=== PATIENT | male | born 1950 | race Hispanic/Latino ===

== ENCOUNTER → 2019-11-10 | Outpatient (CLI) | payer OTHER ==
[~2019-11-10] MED LIST: ESOM40CA54 PO; GLIP10TA9 PO; HONEY 1 APPL/ML TUBE TP ONE; METF-444 PO; PHYT1CAP PO
[2019-11-10 14:42] VITALS: BP 122/66
== END | disposition home or self-care (01) ==
LOC: WHH 08:30
PROVIDERS: ATTEND Podiatrist Foot & Ankle Surgery
DX: E11.621 Type 2 diabetes mellitus with foot ulcer (principal); I70.235 Atherosclerosis of native arteries of right leg with ulceration of other part of foot; L97.511 Non-pressure chronic ulcer of other part of right foot limited to breakdown of skin; I70.202 Unspecified atherosclerosis of native arteries of extremities, left leg; E11.51 Type 2 diabetes mellitus with diabetic peripheral angiopathy without gangrene; E11.40 Type 2 diabetes mellitus with diabetic neuropathy, unspecified; E78.5 Hyperlipidemia, unspecified; M19.90 Unspecified osteoarthritis, unspecified site; Z86.010 Personal history of colon polyps; I10 Essential (primary) hypertension
CPT/HCPCS: A4450; G0463; L3260

== ENCOUNTER → 2019-11-12 | Outpatient (CLI) | payer OTHER ==
[~2019-11-12] MED LIST changes: -HONEY 1 APPL/ML TUBE TP ONE
== END | disposition home or self-care (01) ==
LOC: WHH 08:20
PROVIDERS: ATTEND Podiatrist Foot & Ankle Surgery
DX: E11.621 Type 2 diabetes mellitus with foot ulcer (principal); I70.235 Atherosclerosis of native arteries of right leg with ulceration of other part of foot; L97.511 Non-pressure chronic ulcer of other part of right foot limited to breakdown of skin; E11.51 Type 2 diabetes mellitus with diabetic peripheral angiopathy without gangrene; E11.40 Type 2 diabetes mellitus with diabetic neuropathy, unspecified; I10 Essential (primary) hypertension; E78.5 Hyperlipidemia, unspecified; M19.90 Unspecified osteoarthritis, unspecified site; Z86.010 Personal history of colon polyps
CPT/HCPCS: 93923; G0463

== ENCOUNTER → 2019-11-19 | Outpatient (CLI) | payer OTHER | END | disposition home or self-care (01) | LOC: WHH 08:30 | PROVIDERS: ATTEND Podiatrist Foot & Ankle Surgery | DX: E11.621 Type 2 diabetes mellitus with foot ulcer (principal); I70.235 Atherosclerosis of native arteries of right leg with ulceration of other part of foot; L97.511 Non-pressure chronic ulcer of other part of right foot limited to breakdown of skin; E11.51 Type 2 diabetes mellitus with diabetic peripheral angiopathy without gangrene; E11.40 Type 2 diabetes mellitus with diabetic neuropathy, unspecified; I10 Essential (primary) hypertension; E78.5 Hyperlipidemia, unspecified; M19.90 Unspecified osteoarthritis, unspecified site; Z86.010 Personal history of colon polyps | CPT/HCPCS: 93922; L3260 ==

== ENCOUNTER → 2019-11-24 | Outpatient (CLI) | payer OTHER ==
[2019-11-24 14:16] VITALS: BP 135/79
== END | disposition home or self-care (01) ==
LOC: WHH 08:15
PROVIDERS: ATTEND Podiatrist Foot & Ankle Surgery
DX: E11.621 Type 2 diabetes mellitus with foot ulcer (principal); I70.235 Atherosclerosis of native arteries of right leg with ulceration of other part of foot; L97.511 Non-pressure chronic ulcer of other part of right foot limited to breakdown of skin; E11.51 Type 2 diabetes mellitus with diabetic peripheral angiopathy without gangrene; E11.40 Type 2 diabetes mellitus with diabetic neuropathy, unspecified; I10 Essential (primary) hypertension; E78.5 Hyperlipidemia, unspecified; M19.90 Unspecified osteoarthritis, unspecified site; Z86.010 Personal history of colon polyps
CPT/HCPCS: G0463

== ENCOUNTER → 2019-12-08 | Outpatient (CLI) | payer OTHER ==
[2019-12-08 15:32] VITALS: BP 125/57
== END | disposition home or self-care (01) ==
LOC: WHH 07:45
PROVIDERS: ATTEND Podiatrist Foot & Ankle Surgery
DX: E11.621 Type 2 diabetes mellitus with foot ulcer (principal); L97.512 Non-pressure chronic ulcer of other part of right foot with fat layer exposed; E11.40 Type 2 diabetes mellitus with diabetic neuropathy, unspecified; E11.51 Type 2 diabetes mellitus with diabetic peripheral angiopathy without gangrene; I10 Essential (primary) hypertension; M19.90 Unspecified osteoarthritis, unspecified site; E78.5 Hyperlipidemia, unspecified; Z86.010 Personal history of colon polyps
CPT/HCPCS: 11042; A6207

== ENCOUNTER → 2019-12-15 | Outpatient (CLI) | payer OTHER ==
[~2019-12-15] MED LIST changes: +HONEY 1 APPL/ML TUBE TP ONE
[2019-12-15 14:05] VITALS: BP 131/62
== END | disposition home or self-care (01) ==
LOC: WHH 08:00
PROVIDERS: ATTEND Podiatrist Foot & Ankle Surgery
DX: T87.89 Other complications of amputation stump (principal); E11.621 Type 2 diabetes mellitus with foot ulcer; L97.512 Non-pressure chronic ulcer of other part of right foot with fat layer exposed; E11.40 Type 2 diabetes mellitus with diabetic neuropathy, unspecified; E11.51 Type 2 diabetes mellitus with diabetic peripheral angiopathy without gangrene; I10 Essential (primary) hypertension; M19.90 Unspecified osteoarthritis, unspecified site; E78.5 Hyperlipidemia, unspecified; Z86.010 Personal history of colon polyps; Y83.5 Amputation of limb(s) as the cause of abnormal reaction of the patient, or of later complication, without mention of misadventure at the time of the procedure
CPT/HCPCS: 11042

== ENCOUNTER → 2019-12-29 | Outpatient (CLI) | payer OTHER ==
[~2019-12-29] MED LIST changes: -HONEY 1 APPL/ML TUBE TP ONE
[2019-12-29 14:31] VITALS: BP 168/90
== END | disposition home or self-care (01) ==
LOC: WHH 07:55
PROVIDERS: ATTEND Podiatrist Foot & Ankle Surgery
DX: E11.621 Type 2 diabetes mellitus with foot ulcer (principal); L97.512 Non-pressure chronic ulcer of other part of right foot with fat layer exposed; E11.40 Type 2 diabetes mellitus with diabetic neuropathy, unspecified; E11.51 Type 2 diabetes mellitus with diabetic peripheral angiopathy without gangrene; I10 Essential (primary) hypertension; M19.90 Unspecified osteoarthritis, unspecified site; E78.5 Hyperlipidemia, unspecified; Z86.010 Personal history of colon polyps
CPT/HCPCS: A4649; G0463

== ENCOUNTER → 2020-01-12 | Outpatient (CLI) | payer OTHER ==
[2020-01-12 10:31] VITALS: BP 106/60
== END | disposition home or self-care (01) ==
LOC: WHH 07:55
PROVIDERS: ATTEND Podiatrist Foot & Ankle Surgery
DX: E11.621 Type 2 diabetes mellitus with foot ulcer (principal); L97.511 Non-pressure chronic ulcer of other part of right foot limited to breakdown of skin; B35.1 Tinea unguium; E11.42 Type 2 diabetes mellitus with diabetic polyneuropathy; E11.51 Type 2 diabetes mellitus with diabetic peripheral angiopathy without gangrene; I10 Essential (primary) hypertension; E78.5 Hyperlipidemia, unspecified; M19.90 Unspecified osteoarthritis, unspecified site; Z86.010 Personal history of colon polyps
CPT/HCPCS: A6207; G0463

== ENCOUNTER → 2020-01-26 | Outpatient (CLI) | payer OTHER ==
[2020-01-26 11:23] VITALS: BP 122/64
== END | disposition home or self-care (01) ==
LOC: WHH 08:00
PROVIDERS: ATTEND Podiatrist Foot & Ankle Surgery
DX: E11.621 Type 2 diabetes mellitus with foot ulcer (principal); L97.512 Non-pressure chronic ulcer of other part of right foot with fat layer exposed; B35.1 Tinea unguium; E11.42 Type 2 diabetes mellitus with diabetic polyneuropathy; E11.51 Type 2 diabetes mellitus with diabetic peripheral angiopathy without gangrene; E11.40 Type 2 diabetes mellitus with diabetic neuropathy, unspecified; M19.90 Unspecified osteoarthritis, unspecified site; I10 Essential (primary) hypertension; E78.5 Hyperlipidemia, unspecified; Z86.010 Personal history of colon polyps
CPT/HCPCS: 11042; A6207

== ENCOUNTER → 2020-02-09 | Outpatient (CLI) | payer OTHER ==
[2020-02-09 09:51] VITALS: BP 142/71
== END | disposition home or self-care (01) ==
LOC: WHH 08:00
PROVIDERS: ATTEND Podiatrist Foot & Ankle Surgery
DX: E11.621 Type 2 diabetes mellitus with foot ulcer (principal); L97.512 Non-pressure chronic ulcer of other part of right foot with fat layer exposed; B35.1 Tinea unguium; E11.42 Type 2 diabetes mellitus with diabetic polyneuropathy; E11.51 Type 2 diabetes mellitus with diabetic peripheral angiopathy without gangrene; E11.40 Type 2 diabetes mellitus with diabetic neuropathy, unspecified; I10 Essential (primary) hypertension; E78.5 Hyperlipidemia, unspecified; M19.90 Unspecified osteoarthritis, unspecified site; Z86.010 Personal history of colon polyps
CPT/HCPCS: 11042; A6207

== ENCOUNTER → 2020-02-23 | Outpatient (CLI) | payer OTHER ==
[2020-02-23 13:24] VITALS: BP 104/61
== END | disposition home or self-care (01) ==
LOC: WHH 08:00
PROVIDERS: ATTEND Podiatrist Foot & Ankle Surgery
DX: E11.621 Type 2 diabetes mellitus with foot ulcer (principal); L97.512 Non-pressure chronic ulcer of other part of right foot with fat layer exposed; B35.1 Tinea unguium; E11.42 Type 2 diabetes mellitus with diabetic polyneuropathy; E11.51 Type 2 diabetes mellitus with diabetic peripheral angiopathy without gangrene; E11.40 Type 2 diabetes mellitus with diabetic neuropathy, unspecified; I10 Essential (primary) hypertension; M19.90 Unspecified osteoarthritis, unspecified site; Z86.010 Personal history of colon polyps
CPT/HCPCS: 11042; A4649

== ENCOUNTER → 2020-03-15 | Outpatient (CLI) | payer OTHER ==
[2020-03-15 09:08] VITALS: BP 114/76
== END | disposition home or self-care (01) ==
LOC: WHH 08:00
PROVIDERS: ATTEND Podiatrist Foot & Ankle Surgery
DX: E11.621 Type 2 diabetes mellitus with foot ulcer (principal); L97.512 Non-pressure chronic ulcer of other part of right foot with fat layer exposed; B35.1 Tinea unguium; E11.42 Type 2 diabetes mellitus with diabetic polyneuropathy; E11.51 Type 2 diabetes mellitus with diabetic peripheral angiopathy without gangrene; E11.40 Type 2 diabetes mellitus with diabetic neuropathy, unspecified; I10 Essential (primary) hypertension; M19.90 Unspecified osteoarthritis, unspecified site; Z86.010 Personal history of colon polyps
CPT/HCPCS: 15275; A6196; A6207; Q4133

== ENCOUNTER → 2020-03-22 | Outpatient (CLI) | payer OTHER ==
[2020-03-22 10:14] VITALS: BP 118/61
== END | disposition home or self-care (01) ==
LOC: WHH 08:00
PROVIDERS: ATTEND Podiatrist Foot & Ankle Surgery
DX: T86.828 Other complications of skin graft (allograft) (autograft) (principal); E11.621 Type 2 diabetes mellitus with foot ulcer; L97.511 Non-pressure chronic ulcer of other part of right foot limited to breakdown of skin; B35.1 Tinea unguium; E11.42 Type 2 diabetes mellitus with diabetic polyneuropathy; E11.51 Type 2 diabetes mellitus with diabetic peripheral angiopathy without gangrene; I10 Essential (primary) hypertension; M19.90 Unspecified osteoarthritis, unspecified site; Z86.010 Personal history of colon polyps; Y83.2 Surgical operation with anastomosis, bypass or graft as the cause of abnormal reaction of the patient, or of later complication, without mention of misadventure at the time of the procedure
CPT/HCPCS: 15275; A6196; A6207; Q4133

== ENCOUNTER → 2020-03-29 | Outpatient (CLI) | payer OTHER ==
[2020-03-29 12:44] VITALS: BP 127/66
== END | disposition home or self-care (01) ==
LOC: WHH 08:00
PROVIDERS: ATTEND Podiatrist Foot & Ankle Surgery
DX: T86.828 Other complications of skin graft (allograft) (autograft) (principal); E11.621 Type 2 diabetes mellitus with foot ulcer; L97.511 Non-pressure chronic ulcer of other part of right foot limited to breakdown of skin; B35.1 Tinea unguium; E11.42 Type 2 diabetes mellitus with diabetic polyneuropathy; E11.51 Type 2 diabetes mellitus with diabetic peripheral angiopathy without gangrene; I10 Essential (primary) hypertension; M19.90 Unspecified osteoarthritis, unspecified site; Z86.010 Personal history of colon polyps; Y83.2 Surgical operation with anastomosis, bypass or graft as the cause of abnormal reaction of the patient, or of later complication, without mention of misadventure at the time of the procedure
CPT/HCPCS: 15275; A6196; Q4133

== ENCOUNTER → 2020-04-05 | Outpatient (CLI) | payer OTHER ==
[2020-04-05 10:02] VITALS: BP 119/63
== END | disposition home or self-care (01) ==
LOC: WHH 08:05
PROVIDERS: ATTEND Podiatrist Foot & Ankle Surgery
DX: T86.828 Other complications of skin graft (allograft) (autograft) (principal); E11.621 Type 2 diabetes mellitus with foot ulcer; L97.511 Non-pressure chronic ulcer of other part of right foot limited to breakdown of skin; E11.42 Type 2 diabetes mellitus with diabetic polyneuropathy; E11.51 Type 2 diabetes mellitus with diabetic peripheral angiopathy without gangrene; I10 Essential (primary) hypertension; B35.1 Tinea unguium; E78.5 Hyperlipidemia, unspecified; M19.90 Unspecified osteoarthritis, unspecified site; Z86.010 Personal history of colon polyps; Y83.2 Surgical operation with anastomosis, bypass or graft as the cause of abnormal reaction of the patient, or of later complication, without mention of misadventure at the time of the procedure
CPT/HCPCS: 15275; A6196; A6207; Q4133

== ENCOUNTER → 2020-04-12 | Outpatient (CLI) | payer OTHER ==
[2020-04-12 12:51] VITALS: BP 117/57
== END | disposition home or self-care (01) ==
LOC: WHH 08:00
PROVIDERS: ATTEND Podiatrist Foot & Ankle Surgery
DX: T86.828 Other complications of skin graft (allograft) (autograft) (principal); E11.621 Type 2 diabetes mellitus with foot ulcer; L97.511 Non-pressure chronic ulcer of other part of right foot limited to breakdown of skin; E11.42 Type 2 diabetes mellitus with diabetic polyneuropathy; E11.51 Type 2 diabetes mellitus with diabetic peripheral angiopathy without gangrene; I10 Essential (primary) hypertension; B35.1 Tinea unguium; E78.5 Hyperlipidemia, unspecified; Z86.010 Personal history of colon polyps; Y83.2 Surgical operation with anastomosis, bypass or graft as the cause of abnormal reaction of the patient, or of later complication, without mention of misadventure at the time of the procedure
CPT/HCPCS: 15275; A6196; A6207; Q4133

== ENCOUNTER → 2020-04-19 | Outpatient (CLI) | payer OTHER ==
[2020-04-19 09:15] VITALS: BP 119/67; PULSE 70; RESP 16; TEMP 98
== END | disposition home or self-care (01) ==
LOC: WHH 08:00
PROVIDERS: ATTEND Podiatrist Foot & Ankle Surgery
DX: T86.828 Other complications of skin graft (allograft) (autograft) (principal); E11.621 Type 2 diabetes mellitus with foot ulcer; L97.511 Non-pressure chronic ulcer of other part of right foot limited to breakdown of skin; E11.42 Type 2 diabetes mellitus with diabetic polyneuropathy; E11.51 Type 2 diabetes mellitus with diabetic peripheral angiopathy without gangrene; I10 Essential (primary) hypertension; B35.1 Tinea unguium; E78.5 Hyperlipidemia, unspecified; Z86.010 Personal history of colon polyps; Y83.2 Surgical operation with anastomosis, bypass or graft as the cause of abnormal reaction of the patient, or of later complication, without mention of misadventure at the time of the procedure
CPT/HCPCS: 15275; A6196; A6207; Q4133

== ENCOUNTER → 2020-04-26 | Outpatient (CLI) | payer OTHER | END | disposition home or self-care (01) | LOC: WHH 08:00 | PROVIDERS: ATTEND Podiatrist Foot & Ankle Surgery | DX: E11.621 Type 2 diabetes mellitus with foot ulcer (principal); L97.511 Non-pressure chronic ulcer of other part of right foot limited to breakdown of skin; E11.40 Type 2 diabetes mellitus with diabetic neuropathy, unspecified; E11.42 Type 2 diabetes mellitus with diabetic polyneuropathy; E11.51 Type 2 diabetes mellitus with diabetic peripheral angiopathy without gangrene; I10 Essential (primary) hypertension; E78.5 Hyperlipidemia, unspecified; Z86.010 Personal history of colon polyps | CPT/HCPCS: A6196; G0463 ==

== ENCOUNTER → 2020-05-03 | Outpatient (CLI) | payer OTHER ==
[2020-05-03 11:54] VITALS: BP 124/65; PULSE 75; RESP 18; TEMP 98.3
== END | disposition home or self-care (01) ==
LOC: WHH 08:00
PROVIDERS: ATTEND Podiatrist Foot & Ankle Surgery
DX: T86.828 Other complications of skin graft (allograft) (autograft) (principal); E11.621 Type 2 diabetes mellitus with foot ulcer; L97.511 Non-pressure chronic ulcer of other part of right foot limited to breakdown of skin; E11.42 Type 2 diabetes mellitus with diabetic polyneuropathy; E11.51 Type 2 diabetes mellitus with diabetic peripheral angiopathy without gangrene; I10 Essential (primary) hypertension; E78.5 Hyperlipidemia, unspecified; B35.1 Tinea unguium; M19.90 Unspecified osteoarthritis, unspecified site; Z86.010 Personal history of colon polyps; Y83.2 Surgical operation with anastomosis, bypass or graft as the cause of abnormal reaction of the patient, or of later complication, without mention of misadventure at the time of the procedure
CPT/HCPCS: A6207; G0463

== ENCOUNTER 2022-01-10 21:28 | Emergency (ER) | payer OTHER ==
[~2022-01-10] VITALS: Ht 182.9 cm; Wt 81.6 kg
[~2022-01-10 21:28] MED LIST changes: +ALPR0.5T8 PO; +AMOX-429 PO; +ATOR20TA65 PO; +CILO50TA PO; -ESOM40CA54 PO; -GLIP10TA9 PO; +LEVO50TA11 PO; +LINA72CA PO; +LISI10TA24 PO; -METF-444 PO; +METF-446 PO; +PANT40TA54 PO; -PHYT1CAP PO; +REPA2TAB8 PO
[2022-01-10] MEDS ORDERED: ACET-2247 PO (22:20)
[2022-01-10] MEDS ORDERED: DIAZ5TAB PO (22:20)
[2022-01-10 22:30] VITALS: BP 146/71
[2022-01-10] MEDS ORDERED: HYDROCODONE/ACETAMINOPHEN 5/325 MG TAB PO ONE (22:30)
[2022-01-10] MEDS ORDERED: DIAZEPAM 5 MG TABLET PO ONE (22:30)
== END 2022-01-10 22:48 | disposition home or self-care (01) ==
LOC: EDH 21:28
DX: M43.6 Torticollis (principal); E11.9 Type 2 diabetes mellitus without complications; I10 Essential (primary) hypertension; Z79.84 Long term (current) use of oral hypoglycemic drugs; Z79.899 Other long term (current) drug therapy

== ENCOUNTER 2025-02-15 09:40 | Emergency (ER) | payer OTHER ==
[~2025-02-15] VITALS: Ht 188 cm; Wt 84.8 kg
[~2025-02-15 09:40] MED LIST changes: +ACET-2247 PO; -CILO50TA PO; +CILO50TA2 PO; +DIAZ5TAB PO
--- NOTE | 2025-02-15 10:19 | ERN ---
General Chief Complaint: Low Back Pain/Injury Stated Complaint: BACK PAIN Time Seen by MD: 09:42 Source: patient History of Present Illness Initial Comments Patient is a 74-year-old male coming in to be evaluated for lower back pain. Per patient low back pain has been ongoing for two weeks. He states that the pain radiates to the left flank region. He does not recall falling down or any physical activity that could be attributing to his back pain. Allergies: Coded Allergies: No Known Allergies (Unverified Allergy, Unknown, 08/29/16) Home Meds Active Scripts Acetaminophen (Tylenol) 325 Mg Tablet, 650 MG PO Q4H, #50 TAB Prov:PRIYANKA YUAN 01/10/22 Diazepam (Valium) 5 Mg Tablet, 5 MG PO TIDP, #15 TAB Prov:PRIYANKA YUAN 01/10/22 Amoxicillin/Potassium Clav (Augmentin 875-125 Tablet) 1 Each Tablet, 1 EACH PO BID for 7 Days, #14 TAB 0 Refills Prov:MATT DONAHUE APRN 04/02/21 Reported Medications Alprazolam (Alprazolam) 0.5 Mg Tablet, 0.5 MG PO DAILY PRN for ANXIETY, TAB 04/01/21 Cilostazol (Cilostazol) 50 Mg Tablet, 50 MG PO BID, TAB 04/01/21 Metformin HCl (Metformin HCl) 1,000 Mg Tablet, 1000 MG PO BID, TAB 04/01/21 Levothyroxine Sodium (Levothyroxine Sodium) 50 Mcg Tablet, 50 MCG PO DAILY, TAB 03/31/21 Pantoprazole Sodium (Pantoprazole Sodium) 40 Mg Tablet.dr, 40 MG PO DAILY, TAB 03/31/21 Linaclotide (Linzess) 72 Mcg Capsule, 72 MCG PO DAILY, CAP 03/31/21 Repaglinide (Repaglinide) 2 Mg Tablet, 2 MG PO TIDMEALS, TAB 03/31/21 Atorvastatin Calcium (Atorvastatin Calcium) 20 Mg Tablet, 20 MG PO DAILY, TAB 03/31/21 Lisinopril (Lisinopril) 10 Mg Tablet, 10 MG PO DAILY, TAB 03/31/21 Past Medical History Past Medical History: Diabetes-Type II, Hypertension Past Surgical History: None Family History Family History: Negative Social History Social History: Negative ROS Dictation CONSTITUTIONAL: No chills, no fever, no weakness, no diaphoresis, no malaise. HEAD/FACE: No signs of trauma. EENT: No eye pain, no blurred vision, no tearing, no double vision, no ear pain, no ear discharge, no nose pain, no nasal congestion, no throat pain, no throat swelling, no mouth pain. RESPIRATORY: No cough, no orthopnea, no SOB, no stridor, no wheezing. CARDIOVASCULAR: No chest pain, no edema, no palpitations, no syncope. GASTROINTESTINAL/ABDOMINAL: No abdominal pain, no constipation, no diarrhea, no nausea, no vomiting. GENITOURINARY: No abnormal discharge, no dysuria, no frequent urination, no hematuria. No complaints of pain in the genitals. MUSCULOSKELETAL: No back pain, no gout, no joint pain, no joint swelling, no muscle pain, no muscle stiffness, no neck pain. INTEGUMENTARY: No change in color, no change in hair/nails, no dryness, no lesion, no lumps, no rash. NEUROLOGICAL/PSYCH: No anxiety, not depressed, no emotional problem, no headache, no numbness, no pre-existing deficit, no history of seizures, no tremors, no weakness. HEMATOLOGIC/LYMPHATIC: Not anemic, no history of blood clots, no apparent bleeding, no bruising, glands not swollen. All Systems Negative, Except as Noted. Physical Exam Physical Exam Dictation VITAL SIGNS: Reviewed. GENERAL APPEARANCE: Alert, oriented x3, no acute distress, obese. HEAD AND FACE: Non-traumatic. EYES: PERRL, pink conjunctivas, eyelid no trauma, anterior chamber clear. EARS: Pinnas intact and no signs of trauma or erythema. Ear canals clear and no discharge. TMs no erythema. NOSE: No discharge, no bleeding. OROPHARYNX: Mouth normal, teeth no caries, tongue pink. Pharynx clear, no erythema. Tonsils no exudates, no abscesses noted. Mucous membrane moist. NECK: Supple, non-tender, no thyromegaly, no masses, no JVD, no bruits. BREAST: Deferred. CHEST: No tenderness, no crepitus, no paradoxical movement, no retractions. LUNGS: Clear, well-ventilated, symmetric, no rales, no wheezing, no rhonchi, no stridor, good breath sounds bilaterally. HEART: Regular rate, regular rhythm, no murmur, no gallops. VASCULAR: No peripheral edema. ABDOMEN: Soft, positive bowel sounds, nondistended, no guarding, nontender, no rebound, no masses no hepatomegaly, no splenomegaly, no Fisher's sign, no hernias. RECTAL: Deferred. GENITAL: Deferred. NEUROLOGICAL: Normal speech, gross motor function intact, gross sensory function intact. MUSCULOSKELETAL: Neck nontender, full range of motion, back line cook, full range of motion. EXTREMITIES: Nontender, full range of motion. SKIN: Color pink, dry, no turgor, no rash, no lacerations, no abrasions, no contusions. LYMPHATICS: Deferred. Results Laboratory and Microbiology Lab and Micro Result Laboratory Tests Test 02/15/25 09:36 Urine Color LIGHT-YELLOW (YELLOW) Urine Appearance CLEAR (CLEAR) Urine pH 5.5 (5.0-8.0) Urine Specific Tracy 1.013 (1.001-1.031) Urine Protein NEGATIVE mg/dL (NEGATIVE) Urine Glucose (UA) 200 mg/dL (NEGATIVE) H Urine Ketones NEGATIVE mg/dL (NEGATIVE) Urine Occult Blood NEGATIVE (NEGATIVE) Urine Nitrate NEGATIVE (NEGATIVE) Urine Bilirubin NEGATIVE mg/dL (NEGATIVE) Urine Urobilinogen 0.2 mg/dL (0.2-1.0) Urine Leukocyte Esterase NEGATIVE Ashli/uL Urine RBC 0-1 /HPF (0-1) Urine WBC None /HPF (0-1) Urine Squamous Epithelial Cells RARE /HPF (0-2) Urine Bacteria None /HPF (None Seen) Labs Reviewed?: Yes EKG/XRAY/US/CT/MRI CT Scan Comment [place] [id number] [id number] IMAGING REPORT Signed PATIENT: BEBETO PHILLIPS MR#: [id number] : 1950 SEX: M AGE: 74 LOCATION: [facility] ORDER 5 STATUS: REG ER REPORT#: [id number] SERVICE 4 REASON: left flank pain ORDERING PHYSICIAN: LYNNETTE MCCLELLAN MD PROCEDURE: ABD PEL WO - CT ABDOMEN/PELVIS W/O CONTRAST CT ABDOMEN WITHOUT CONTRAST. CT PELVIS WITHOUT CONTRAST. INDICATION: Left flank pain TECHNIQUE: Routine transaxial imaging using 5 mm slice thickness through the abdomen and pelvis without the administration of IV contrast. Thin slice reconstructions are also provided. Coronal and sagittal reformatted images acquired for interpretation. CT was performed with one or more of the following dose reduction techniques: Automated exposure control, adjustment of the mA and/or kV according to patient size, or use of iterative reconstruction technique. COMPARISON: None FINDINGS: ON NONCONTRAST IMAGING: ABDOMEN: Heart size is normal. Coronary arterial wall calcific plaque noted. Generalized bilateral lower lung peripheral scarring. No abnormal renal calcifications, hydronephrosis, perinephric inflammation, or proximal hydroureter detected. The liver is normal in size and smooth in contour without biliary duct dilation. The spleen is normal in size and attenuation. The gallbladder appears normal. The pancreas appears normal without pancreatic duct dilation. The adrenal glands appear normal. No significant abdominal, retrocrural or retroperitoneal adenopathy noted. No evidence for intra-abdominal free air or organized fluid collection. Mild calcific plaque is noted along the abdominal aortic and iliac vessel meneses without aneurysmal dilation. PELVIS: Penile prosthesis hardware noted. No abnormal calcifications within the urinary bladder or distal ureters. 3.8 cm diverticulum arising off the anterior right urinary bladder wall. No evidence for free air or organized pelvic fluid collection. No significant pelvic adenopathy detected. Moderate stool burden. Terminal ileum appears unremarkable. The appendix appears normal. Shallow lumbar dextroscoliosis. IMPRESSION: 1. 3.8 cm anterior right urinary bladder wall diverticulum, without evidence for any acute intra-abdominal or pelvic process, including no evidence for left urolithiasis or cystitis. 2. Findings suggesting constipation. 3. Arteriosclerotic disease as described. 4. Additional minor findings, postsurgical changes, and pertinent negatives as reported. DICTATED BY: LARON POSAAD MD DATE: 02/15/25 1202 ELECTRONICALLY SIGNED BY: LARON POSADA MD DATE: 02/15/25 1209 [facility] MDM: Differential diagnosis: Back strain, bladder diverticulum, nephrolithiasis, Rationale: Tests considered and ordered secondary to shared decision making include: Previous outside records reviewed: Old ER visits. Risk of complication and/or morbidity or mortality of patient management: None Patient is a 74-year-old male coming in to be evaluated for back pain. CT did not disclose acute findings. Incident until diverticulum was noted. Patient will be discharged in stable condition with a diagnosis of back strain. I did advised him appropriate follow up with PCP in 1-2 days. ED Course Orders Procedure Category Date Status Time Urinalysis LAB 02/15/25 Complete W/Microscopic 09:45 Ct Abdomen/Pelvis W/O CT 02/15/25 Resulted Contrast 09:45 Orphenadrine Citrate PHA 02/15/25 In Process (Norflex) 12:30 Ketorolac PHA 02/15/25 In Process Tromethamine 15mg/Ml 12:30 Current Medications Medications (Trade) Dose Ordered Sig/Donte Route PRN Reason Start Time Stop Time Status Last Admin Dose Admin Ketorolac Tromethamine (toRADol) 15 mg ONCE ONCE IM 02/15/25 12:30 02/15/25 12:31 Orphenadrine Citrate (Norflex) 60 mg ONCE ONCE IM 02/15/25 12:30 02/15/25 12:31 Vital Signs Date Time Temp Pulse Resp B/P (MAP) Pulse Ox O2 Delivery O2 Flow Rate FiO2 02/15/25 09:41 97.5 68 16 137/49 98 Room Air* 0 21 02/15/25 09:41 97.5 68 16 137/49 98 Room Air 0 DX & DISP Disposition: Discharge Departure Impression: Primary Impression: Lumbar strain Additional Impression: Bladder diverticulum Condition: Stable Scripts Diclofenac Sodium (Voltaren Arthritis Pain) 1 % Gel..gram. 4 GM TP BID for 7 Days, #1 TUBE Prov: LYNNETTE MCCLELLAN MD 02/15/25 Additional Instructions: FOLLOW-UP WITH PRIMARY CARE PROVIDER IN 1 TO 2 DAYS. TAKE MEDICATIONS DIRECTED HERE IN THE EMERGENCY ROOM. OKAY TO CONTINUE HOME MEDICATIONS UNLESS OTHERWISE DISCUSSED DURING YOUR VISIT IN THE EMERGENCY ROOM TODAY. RETURN TO YOUR NEAREST EMERGENCY ROOM IF SYMPTOMS WORSEN OR IF THERE IS NO IMPROVEMENT. CALL 911 IF YOU NEED IMMEDIATE ASSISTANCE. TAKE TYLENOL [id number] NEEDED AND IF NO CONTRAINDICATIONS ARE PRESENT. INCREASE ORAL HYDRATION. A WOUND CULTURE OR URINE CULTURE WAS ORDERED HERE IN THE EMERGENCY ROOM DEPARTMENT PLEASE FOLLOW-UP WITH PRIMARY CARE PROVIDER AND ADVISE THEM TO GET REPEAT PORTS FROM OUR FACILITY. IF YOU HAD ANY AMY WRAP/SPLINTS THAT WERE APPLIED HERE, PLEASE DO NOT REMOVE THEM UNTIL YOU SEE YOUR PRIMARY CARE OR SPECIALTY. Referrals: Referrals: TEX DELGADILLO MD (PCP) HERON CARDOZA MD Time of Disposition: 12:24 LYNNETTE MCCLELLAN MD Feb 15, 2025 10:18
[2025-02-15 10:42] LABS: APPEARANCE,URINE CLEAR (CLEAR); BILIRUBIN,URINE NEGATIVE (NEGATIVE); COLOR,URINE LIGHT-YELLOW (YELLOW); GLUCOSE, URINE (UA) 200 mg/dL (NEGATIVE); KETONES,URINE NEGATIVE (NEGATIVE); LEUKOCYTE ESTERASE ,URINE NEGATIVE Leu/uL (NEGATIVE); NITRATE,URINE NEGATIVE (NEGATIVE); OCCULT BLOOD,URINE NEGATIVE (NEGATIVE); PH,URINE 5.5 (5.0-8.0); PROTEIN,URINE NEGATIVE (NEGATIVE); UROBILINOGEN,URINE 0.2 mg/dL (0.2-1.0)
[2025-02-15 10:43] LABS: RBC,URINE 0-1 /HPF (0-1); SQUAMOUS EPITHELIAL CELL,UR RARE /HPF (0-2)
--- NOTE | 2025-02-15 12:09 | HMCIMG ---
CT ABDOMEN WITHOUT CONTRAST. CT PELVIS WITHOUT CONTRAST. INDICATION: Left flank pain TECHNIQUE: Routine transaxial imaging using 5 mm slice thickness through the abdomen and pelvis without the administration of IV contrast. Thin slice reconstructions are also provided. Coronal and sagittal reformatted images acquired for interpretation. CT was performed with one or more of the following dose reduction techniques: Automated exposure control, adjustment of the mA and/or kV according to patient size, or use of iterative reconstruction technique. COMPARISON: None FINDINGS: ON NONCONTRAST IMAGING: ABDOMEN: Heart size is normal. Coronary arterial wall calcific plaque noted. Generalized bilateral lower lung peripheral scarring. No abnormal renal calcifications, hydronephrosis, perinephric inflammation, or proximal hydroureter detected. The liver is normal in size and smooth in contour without biliary duct dilation. The spleen is normal in size and attenuation. The gallbladder appears normal. The pancreas appears normal without pancreatic duct dilation. The adrenal glands appear normal. No significant abdominal, retrocrural or retroperitoneal adenopathy noted. No evidence for intra-abdominal free air or organized fluid collection. Mild calcific plaque is noted along the abdominal aortic and iliac vessel meneses without aneurysmal dilation. PELVIS: Penile prosthesis hardware noted. No abnormal calcifications within the urinary bladder or distal ureters. 3.8 cm diverticulum arising off the anterior right urinary bladder wall. No evidence for free air or organized pelvic fluid collection. No significant pelvic adenopathy detected. Moderate stool burden. Terminal ileum appears unremarkable. The appendix appears normal. Shallow lumbar dextroscoliosis. IMPRESSION: 1. 3.8 cm anterior right urinary bladder wall diverticulum, without evidence for any acute intra-abdominal or pelvic process, including no evidence for left urolithiasis or cystitis. 2. Findings suggesting constipation. 3. Arteriosclerotic disease as described. 4. Additional minor findings, postsurgical changes, and pertinent negatives as reported.
[2025-02-15] MEDS ORDERED: DICL20GE TP (12:25)
[2025-02-15 12:37] VITALS: BP 129/53; PULSE 65; RESP 16; TEMP 97.5; O2SAT 98
[2025-02-15] MEDS: ORPHENADRINE 60MG/2ML IM ONE (12:37)
[2025-02-15] MEDS: ketOROlac 15MG/ML VIAL (15MG/ML) IM ONE (12:37)
== END 2025-02-15 12:51 | disposition home or self-care (01) ==
LOC: EDH 09:40
DX: S39.012A Strain of muscle, fascia and tendon of lower back, initial encounter (principal); N32.3 Diverticulum of bladder; E11.9 Type 2 diabetes mellitus without complications; I10 Essential (primary) hypertension; Z79.02 Long term (current) use of antithrombotics/antiplatelets; Z79.84 Long term (current) use of oral hypoglycemic drugs; Z79.890 Hormone replacement therapy; Z79.899 Other long term (current) drug therapy; X58.XXXA Exposure to other specified factors, initial encounter; Y93.89 Activity, other specified; Y92.89 Other specified places as the place of occurrence of the external cause; Y99.8 Other external cause status
CPT/HCPCS: 99285; 74176; 81001; 96372 ×2; J1885; J2360